=== PATIENT | female | born 1935 | race Caucasian/White ===

== ENCOUNTER 2018-12-01 12:01 | Observation (INO) | payer OTHER ==
--- NOTE | 2018-12-01 14:55 | EDPHY ---
H & P Smoking Status: Never smoked Time Seen by Provider: 12/01/18 14:29 HPI/ROS: Chief complaint. Cough HPI. Patient 82-year-old female with chronic shortness of breath. She has had 1 week of cough that is somewhat productive of creamy green sputum. No fever however. She saw her PCP 2 days ago and had a negative flu test. Diagnosis was viral syndrome. Since then she has had sinus drainage and diarrhea. She has some dyspnea on exertion. She had 1-2 minutes of chest discomfort walking from the waiting room to the ER and then resolved when she laid down. No sick contacts or recent travel. No abdominal pain. She has not had chest discomfort other than this 1 episode. ROS 10 systems were reviewed and negative with the exception of the elements mentioned in the history of present illness (Ridge Nguyễn) Past Medical/Surgical History: Depression anxiety, GERD, lymphoma, hysterectomy, mastectomy (Rideg Nguyễn) Social History: , nonsmoker, no alcohol (Ridge Nguyễn) Physical Exam: General Appearance: Alert well-developed female mild distress vital signs stable initial blood pressure 146/121 Eyes: Pupils equal and round no pallor or injection. ENT, Mouth: Mucous membranes are moist. Respiratory: No retractions . Mild inspiratory expiratory rhonchi Cardiovascular: Regular rate and rhythm. Gastrointestinal: Abdomen is soft and nontender, no masses, bowel sounds normal. Neurological: Awake and alert, sensory and motor exams grossly normal. Skin: Warm and dry, no rashes. Musculoskeletal: Neck is supple nontender. Extremities symmetrical, full range of motion. Psychiatric: Patient is oriented X 3, there is no agitation. (Ridge Nguyễn) Constitutional: Initial Vital Signs Temperature (C) 37.5 C 12/01/18 12:28 Heart Rate 86 12/01/18 12:28 Respiratory Rate 20 12/01/18 12:28 Blood Pressure 146/121 H 12/01/18 12:28 O2 Sat (%) 95 12/01/18 12:28 O2 Delivery Mode Room Air Allergies/Adverse Reactions: meperidine HCl [From Demerol] Allergy (Verified 12/01/18 12:27) Home Medications: Medication Instructions Recorded Albuterol [Ventolin Hfa Inhaler] 1 - 2 puffs IH Q6 PRN 12/01/18 C/E/Zn/Cu/OM3/DHA/EPA/LUT/ZEAX 1 each PO BID 12/01/18 [Preservision Areds 2 Softgel] Citalopram [CeleXA] 20 mg PO DAILY 12/01/18 Ibuprofen [Advil] 200 mg PO Q6H PRN 12/01/18 Lansoprazole [Prevacid] 30 mg PO DAILY 12/01/18 Medical Decision Making - Diagnostics Imaging Results: Imaging Impressions Chest X-Ray 12/01/18 14:29 Impression: New left lower lobe airspace consolidation, likely pneumonia. Recommend follow-up chest radiograph in 4 to 6 weeks. Procedures: IV normal saline (Ridge Nguyễn) ED Course/Re-evaluation: 1500: Patient is signed out to me at change by Dr. Nguyễn. I reviewed the patient's laboratory studies. White count is normal. Patient is mildly more knee karl than previous studies. BNP was 444. Troponin was negative. 15 40: I personally evaluated the patient. Patient was noted to have stable blood pressure and heart rate. Her temperature was 37.5 degrees. Her oxygen saturation was 88%. She was placed on supplemental oxygen. Patient had a mild coarse breath. No significant respiratory distress. Clear breath sounds bilaterally. Chest x-ray: Please refer the dictated report. There is left lower lobe infiltrate. Blood cultures were ordered. Lactic acid was added. Patient was given Rocephin 1 g IV and azithromycin 500 mg IV. Blood cultures were ordered. I discussed the case with the hospitalist service. Patient will be admitted for further care. EKG shows sinus rhythm at 77. There are flipped T-waves in V2 through V6. There is slight depression V3 through V 6. This was unchanged with a previous EKG in 2008. (Shreya Cooney) Differential Diagnosis: My differential includes but is not limited to pneumonia, bronchitis, influenza , viral illness, bacteremia, sepsis, hypoxia (Shreya Cooney) Care Turn Over: care to Dr. Cooney at 3 pm (Ridge Nguyễn) - Data Points Laboratory Results: Laboratory Results 12/01/18 15:00 12/01/18 15:00 12/01/18 12/01/18 12/01/18 15:03 15:00 15:00 WBC 5.78 10^3/uL 10^3/uL (3.80-9.50) RBC 3.61 10^6/uL L 10^6/uL (4.18-5.33) Hgb 10.2 g/dL L g/dL (12.6-16.3) Hct 32.6 % L % (38.0-47.0) MCV 90.3 fL fL (81.5-99.8) MCH 28.3 pg pg (27.9-34.1) MCHC 31.3 g/dL L g/dL (32.4-36.7) RDW 14.7 % % (11.5-15.2) Plt Count 210 10^3/uL 10^3/uL (150-400) MPV 10.3 fL fL (8.7-11.7) Neut % (Auto) 73.3 % % (39.3-74.2) Lymph % (Auto) 13.0 % L % (15.0-45.0) [place] % (Auto) 11.1 % % (4.5-13.0) Eos % (Auto) 1.9 % % (0.6-7.6) Baso % (Auto) 0.5 % % (0.3-1.7) Nucleat RBC Rel Count 0.0 % % (0.0-0.2) Absolute Neuts (auto) 4.24 10^3/uL 10^3/uL (1.70-6.50) Absolute Lymphs (auto) 0.75 10^3/uL L 10^3/uL (1.00-3.00) Absolute Monos (auto) 0.64 10^3/uL 10^3/uL (0.30-0.80) Absolute Eos (auto) 0.11 10^3/uL 10^3/uL (0.03-0.40) Absolute Basos (auto) 0.03 10^3/uL 10^3/uL (0.02-0.10) Absolute Nucleated RBC 0.00 10^3/uL 10^3/uL (0-0.01) Immature Gran % 0.2 % % (0.0-1.1) Immature Gran # 0.01 10^3/uL 10^3/uL (0.00-0.10) Sodium 137 mEq/L mEq/L (135-145) Potassium 3.9 mEq/L mEq/L (3.5-5.2) Chloride 104 mEq/L mEq/L (97-110) Carbon Dioxide 22 mEq/l mEq/l (22-31) Anion Gap 11 mEq/L mEq/L (6-14) BUN 18 mg/dL mg/dL (7-23) Creatinine 0.9 mg/dL mg/dL (0.6-1.0) Estimated GFR 60 Glucose 110 mg/dL H mg/dL (70-100) Calcium 9.0 mg/dL mg/dL (8.5-10.4) POC Troponin I 0.01 ng/mL ng/mL (0.00-0.08) NT-Pro-B Natriuret Pep 444 pg/mL pg/mL (0-450) Point of Care Test Results: Chemistry 12/01/18 15:03 POC Troponin I 0.01 ng/mL ng/mL (0.00-0.08) Departure - Departure Disposition: [facility] Inpatient Acute Clinical Impression: Hypoxia Pneumonia Qualifiers: Pneumonia type: due to unspecified organism Laterality: left Lung location: lower lobe of lung Qualified Code(s): J18.1 - Lobar pneumonia, unspecified organism Condition: Good
--- NOTE | 2018-12-01 15:09 | CPEKG ---
Test Reason : OPEN Blood Pressure : / mmHG Vent. Rate : 077 BPM Atrial Rate : 077 BPM P-R Int : 134 ms QRS Dur : 086 ms QT Int : 404 ms P-R-T Axes : 084 064 076 degrees QTc Int : 458 ms Sinus rhythm Confirmed by Dayana Nguyễn ([id number]) on 12/01/2018 3:08:36 PM Referred By: DAYANA NGUYỄN Confirmed By:Dayana Nguyễn
[2018-12-01 15:14] LABS: PLATELET COUNT 210 10^3/uL (150-400)
[2018-12-01] MEDS ORDERED: IBUPROFEN 200 MG TAB PO PRN (16:54)
[2018-12-01] MEDS ORDERED: ALBUTEROL 60 PUFFS/8 GM MDI IH PRN (17:00)
[2018-12-01] MEDS ORDERED: ONDANSETRON 4 MG/2 ML VIAL IVP PRN (17:13)
[2018-12-01] MEDS ORDERED: ALBUTEROL 3 ML DEYVIAL IH PRN (17:13)
[2018-12-01] MEDS ORDERED: ONDANSETRON DISINTEGRATING 4 MG TAB PO PRN (17:13)
[2018-12-01] MEDS: NS 1,000 ML IV SCH (17:39)
[2018-12-01] MEDS ORDERED: ZOLPIDEM TARTRATE 5 MG TAB PO PRN (18:26)
--- NOTE | 2018-12-01 18:31 | GHP ---
[f rep st] HISTORY AND PHYSICAL DATE OF ADMISSION: 12/01/2018 HISTORY OF PRESENT ILLNESS: The patient is an 82-year-old female with a history of chronic shortness of breath. She has been more short of breath for about the last week. She had a cough productive o f green sputum. She has not had fever or chills. She saw her primary care physician recently. She had a negative influenza test. She presents today to the emergency department with increased work of breathing. Chest x-ray showed left lower lobe pneumonia. She also has had some sinus drainage and diarrhea. It sounds like she might have had a little bit of chest discomfort walking in the ER. REVIEW OF SYSTEMS: Complete 10-point review of systems conducted, negative except as noted in the HP I. PAST MEDICAL HISTORY: Remote breast cancer with bilateral mastectomy and multiple breast surgeries s jonathon, depression, anxiety, reflux, lymphoma, chronic shortness of breath. SOCIAL HISTORY: She is . 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 She is a nonsmoker. She has alcohol on a daily basis, but not to excess. ALLERGIES: Demerol. HOME MEDICATIONS: Albuterol, citalopram, ibuprofen, lansoprazole. FAMILY HISTORY: Reviewed unremarkable. PHYSICAL EXAMINATION: VITAL SIGNS: Temp 37.5, blood pressure 146/121, now 135/83, pulse 86, breathi ng 20 times a minute, 95% on room air. GENERAL: No acute distress. HEENT: Sclerae anicteric. Mariaa pharynx clear. Mucous membranes moist. NECK: Supple without lymphadenopathy or JVD. LUNGS: Decre ased breath sounds at the left base with prolonged expiratory phase bilaterally. There are no audibl e wheezes. HEART: S1, S2. ABDOMEN: Soft, nontender, nondistended. EXTREMITIES: Lower extremitie s without edema. Calves nontender. SKIN: Without rash. NEUROLOGIC: Nonfocal. White count 6, hematocrit 32.6. This anemia is somewhat new. Platelets are 210,000. Sodium 137, po tassium 3.9, chloride 104, bicarb 22, BUN 18, creatinine 0.9, glucose 110. Troponin 0.01. BNP is 44 4. Chest x-ray shows left lower lobe infiltrate. EKG interpreted by oh shows sinus at 77 with normal ax is and intervals. There is a T-wave inversion in lead V3, V4, V5. There are no prior EKGs. She did have a stress test in July of 2013, showing no focal wall motion abnormalities and no ischemia; LVEF of 81%, consistent with LVH. I have discussed the case Dr. Shreya Cooney. ASSESSMENT/PLAN: An 82-year-old female with community-acquired pneumonia. 1. Pneumonia. It is reasonable to treat as community-acquired pneumonia with green sputum and chest x-ray findings. Ceftriaxone and azithromycin. Given her prolonged expiratory phase, she will have some scheduled DuoNeb and p.r.n. albuterol. 2. Chronic shortness of breath. Sounds like an outpatient workup is ongoing. 3. Chest discomfort with abnormal EKG. We will cycle troponins. I think that is probably warranted . I think an outpatient stress test could be followed up on. Her primary care physician is Dr. Obi Camejo. 4. Reflux. Continue her lansoprazole. 5. Prophylaxis. Low molecular weight heparin. DISPOSITION: Observation status. She has an upcoming trip to [place] that she is leaving on . It is not clear that this would be the best idea for her, but as of now, she may be able to m chey it. She is not hypoxic. /[id number]/MODL
[2018-12-01] MEDS: AZITHROMYCIN IV 500 MG in NS 250 ML IV SCH (19:04)
[2018-12-01] MEDS: PRESERVISION AREDS2 FORMULA EYE VIT 1 EACH PO SCH (19:53)
[2018-12-01] MEDS: IPRATROPIUM/ALBUTEROL 3 ML DEYVIAL IH SCH (20:49)
[2018-12-01] MEDS: ACETAMINOPHEN 325 MG TAB PO PRN (21:34)
[2018-12-02] MEDS: NS 1,000 ML IV SCH (03:34)
[2018-12-02] MEDS: ACETAMINOPHEN 325 MG TAB PO PRN ×2 (03:36→09:29)
[2018-12-02 05:36] LABS: PLATELET COUNT 168 10^3/uL (150-400)
[2018-12-02] MEDS: IPRATROPIUM/ALBUTEROL 3 ML DEYVIAL IH SCH ×2 (05:58→10:34)
[2018-12-02] MEDS ORDERED: PANTOPRAZOLE SODIUM 40 MG TAB PO SCH (09:00)
[2018-12-02] MEDS ORDERED: ENOXAPARIN 40 MG/0.4 ML SYR SC SCH (09:00)
[2018-12-02] MEDS ORDERED: CITALOPRAM 20 MG TAB PO SCH (09:00)
[2018-12-02] MEDS: PRESERVISION AREDS2 FORMULA EYE VIT 1 EACH PO SCH (09:29)
--- NOTE | 2018-12-02 10:22 | HOSPPROG ---
Hospitalist Progress Note Assessment/Plan: 82 yo F w cap cap: day 2 ceftriaxone/azith repeat cxr around 01/15 anemia: check iron studies h/o normal endoscopy in last year disp[o: home today Subjective: productive cough. on RA Objective: Vital Signs Temp Pulse Resp BP Pulse Ox 36.8 C 90 18 133/97 H 92 12/02/18 08:00 12/02/18 08:00 12/02/18 08:00 12/02/18 08:00 12/02/18 08:00 Laboratory Results 12/02/18 05:15 12/02/18 05:15 - Physical Exam Constitutional: no apparent distress, appears nourished Eyes: PERRL, anicteric sclera Ears, Nose, Mouth, Throat: moist mucous membranes, hearing normal Cardiovascular: regular rate and rhythym, no murmur, rub, or gallop Respiratory: no respiratory distress, other (decreased breath sounds L base) Gastrointestinal: normoactive bowel sounds, soft, non-tender abdomen Genitourinary: No loredo in urethra Skin: warm, normal color Musculoskeletal: full muscle strength, no muscle tenderness Neurologic: AAOx3 ICD10 Worksheet Patient Problems: Problems Problem Status Onset Hypoxia Acute Pneumonia Acute
[2018-12-02] MEDS: AZITHROMYCIN IV 500 MG in NS 250 ML IV SCH (10:31)
[2018-12-02 11:27] VITALS: BP 137/88
--- NOTE | 2018-12-02 11:38 | GDS ---
[f rep st] DISCHARGE SUMMARY DISCHARGE DIAGNOSES: 1. Acute community-acquired pneumonia. 2. Dyspnea of uncertain etiology that is chronic, currently being worked up. 3. Anemia with history of normal endoscopy. 4. Remote breast cancer. HOSPITAL COURSE: Please see admission history and physical by Dr. Maulik Garnica. The patient presente d with acute on chronic shortness of breath, cough productive of green sputum. Chest x-ray showed le ft lower lobe pneumonia. She was afebrile without an oxygen requirement while here. She was treated with ceftriaxone, azithromycin. Blood cultures were negative. She did not have seps is. She is discharged home today to complete a 7-day course of Augmentin and azithromycin. She has outpatient followup. She needs a repeat chest x-ray around January 15, which is 6 weeks from now. I sigala ve communicated with her primary care physician. New prescriptions are Augmentin, azithromycin.. /[id number]/MODL
== END 2018-12-02 12:58 | disposition home or self-care (01) ==
LOC: F3E 17:17
PROVIDERS: ADMIT Internal Medicine; ATTEND Internal Medicine
DX: J18.1 Lobar pneumonia, unspecified organism (principal); R06.09 Other forms of dyspnea; R09.02 Hypoxemia; D64.9 Anemia, unspecified; K21.9 Gastro-esophageal reflux disease without esophagitis; F41.8 Other specified anxiety disorders; Z85.3 Personal history of malignant neoplasm of breast; Z90.10 Acquired absence of unspecified breast and nipple; Z90.710 Acquired absence of both cervix and uterus
CPT/HCPCS: 71046; 93005; 96372; 96374; 96375; 96376; 99285; G0378; J0456; J0696; J1650; 84484-ER

== ENCOUNTER → 2018-12-17 | Outpatient (CLI) | payer OTHER | LOC: FIMAGING 12:49 | PROVIDERS: ATTEND Internal Medicine | DX: Z13.820 Encounter for screening for osteoporosis (principal); M85.89 Other specified disorders of bone density and structure, multiple sites; Z78.0 Asymptomatic menopausal state ==

== ENCOUNTER → 2019-02-18 | Outpatient (CLI) | payer OTHER | LOC: FIMAGING 12:07 ==